=== PATIENT | male | born 1985 | race Caucasian/White ===

== ENCOUNTER 2018-03-01 16:15 | Emergency (ER) | payer OTHER ==
[~2018-03-01] VITALS: Ht 185.4 cm; Wt 84.0 kg
[2018-03-01 16:18] VITALS: BP 106/73
== END 2018-03-01 17:57 | disposition home or self-care (01) ==
LOC: ED 17:51
DX: S80.12XA Contusion of left lower leg, initial encounter (principal); V29.40XA Motorcycle driver injured in collision with unspecified motor vehicles in traffic accident, initial encounter; Y93.89 Activity, other specified; Y92.89 Other specified places as the place of occurrence of the external cause; Y99.8 Other external cause status
CPT/HCPCS: 99284

== ENCOUNTER 2021-05-13 20:58 | Emergency (ER) | payer OTHER ==
[~2021-05-13] VITALS: Ht 185.4 cm; Wt 92.5 kg
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
[2021-05-13] MEDS ORDERED: HYDROmorphone 2 MG/ML, 1ML ONE ×2 (21:24→22:43)
[2021-05-13] MEDS ORDERED: ONDANSETRON 2MG/ML, 2ML ONE (21:25)
[2021-05-13] MEDS ORDERED: LIDOCAINE-MPF 1%, 5ML ONE (21:25)
[2021-05-13] MEDS: HYDROmorphone 1 MG/ML, 1ML INJ IVPush PRN ×2 (21:29→22:47)
[2021-05-13] MEDS ORDERED: LIDOCAINE 2%, 20ML INFIL ONE (21:30)
[2021-05-13] MEDS ORDERED: ONDANSETRON 2MG/ML, 2ML IVPush ONE (21:30)
[2021-05-13] MEDS ORDERED: LIDOCAINE-MPF 2% ,5ML ONE (21:34)
[2021-05-13] MEDS ORDERED: KETOROLAC 30 MG/1 ML ONE (22:43)
[2021-05-13 22:48] VITALS: BP 104/71
[2021-05-13] MEDS ORDERED: KETOROLAC 30 MG/1 ML IV ONE (23:00)
[2021-05-13] MEDS ORDERED: HYDROmorphone 1 MG/ML, 1ML INJ IVPush PRN (23:00)
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
== END 2021-05-13 23:22 | disposition home or self-care (01) ==
LOC: ED 23:07
DX: S43.102A Unspecified dislocation of left acromioclavicular joint, initial encounter (principal); S46.912A Strain of unspecified muscle, fascia and tendon at shoulder and upper arm level, left arm, initial encounter; Z87.891 Personal history of nicotine dependence; V29.49XA Motorcycle driver injured in collision with other motor vehicles in traffic accident, initial encounter; Y93.89 Activity, other specified; Y92.830 Public park as the place of occurrence of the external cause; Y99.8 Other external cause status
CPT/HCPCS: 73020; 96374; 96375; 96376; 99284; J1170; J1885; J2405